=== PATIENT | male | born 1965 | race Caucasian/White ===

== ENCOUNTER → 2021-08-21 01:43 | Outpatient (CLI) | payer OTHER, SELFPAY ==
--- NOTE | 2021-08-21 13:40 | DI.RAD_ITS ---
Exam(s) XR FOOT LT LIMITED EXAM: XR FOOT LT LIMITED CLINICAL HISTORY: GOUT, M10.9. TECHNIQUE: 2D digital imaging was performed. COMPARISON: No exams were available for comparison FINDINGS: Limited two view study (AP and lateral views only) No evidence of fracture or diastasis of the Lisfranc joint evident on this limited study. Both sesam oid bones subjacent to the great toe metatarsal head are bipartite. No pes planus. Bone density nor mal. No osseous lesions nor erosions evident. Bone density normal.. No calcifications plantar fasc ia nor inferior calcaneal spur. No osseous tarsal coalition IMPRESSION: No significant findings on this limited two view study. DATA REPOSITORY: RADIATION DOSE DELIVERED:
[2021-08-21 14:05] LABS: HCT 42.7 % (40.0-50.0); HGB 14.4 g/dL (13.5-17.5); MCH 31.6 pg (27.0-33.0); MCHC 33.7 % (32.0-36.0); MCV 93.6 fL (80-95); Platelet Count 262 10^3/uL (130-400); RBC 4.56 10^6/uL (4.36-5.78); RDW 11.9 % (11.8-14.1); RDW-SD 41.1 fL; WBC 6.34 10^3/uL (4.4-10.8)
[2021-08-21 14:38] LABS: Uric Acid 5.8 mg/dL (3.5-7.2)
== END ==
PROVIDERS: PCP Family Medicine; Visit Provider Chiropractor
DX: M10.9 Gout, unspecified (principal)
CPT/HCPCS: 36415; 85027; 73620; 84550